=== PATIENT | female | born 1970 | race Caucasian/White ===

== ENCOUNTER 2016-12-28 18:25 | Emergency (ER) | payer BC ==
[~2016-12-28] VITALS: Ht 165.1 cm; Wt 74.5 kg
[~2016-12-28 18:25] MED LIST: ALBUAER19 INH; FLNIN NAE; ONDA4TAB7 SL
[2016-12-28 18:36] VITALS: TEMP 36.8; O2SAT 100; Ht 165.1 cm; Wt 74.5 kg
[2016-12-28] MEDS ORDERED: FLUT0.15 NAE (19:24)
[2016-12-28] MEDS ORDERED: ESCI10TA17 PO (19:24)
[2016-12-28] MEDS ORDERED: VNTHFA/IN INH (19:24)
[2016-12-28 19:28] LABS: BASO % 0.4 %; BASO ABS # 0.04 K/uL (0-0.2); COMPLETE YES; EOS % 0.5 %; HEMATOCRIT 40.3 % (37-47); IG% 0.3 %; LYMPH % 16.7 %; LYMPH ABS # 1.59 K/uL (1.2-3.4); MEAN CELL VOLUME 93.5 fL (80-100); MEAN CORPUSCULAR HEMOGLOBIN 30.9 pg (25-34); MEAN PLATELET VOLUME 10.6 fL (7.4-10.4); NEUT % 74.1 %; PLATELET COUNT 212 K/uL (130-400); RED BLOOD COUNT 4.31 M/uL (4.2-5.4); WHITE BLOOD COUNT 9.54 K/uL (4.8-10.8)
--- NOTE | 2016-12-28 19:34 | DIAGNOSTIC IMAGING REPORT ---
CT SCAN OF THE BRAIN WITHOUT IV CONTRAST CLINICAL HISTORY: Weakness. Dizziness. COMPARISON STUDY: No priors. TECHNIQUE: Unenhanced axial CT scan of the brain is performed from the vertex to the skull base. Automated dose control exposure was utilized. CT DOSE: 601.98 mGy.cm FINDINGS: Brain parenchyma: The brain parenchyma is normal in appearance. There is no hemorrhage, mass effect, or evidence of acute territorial ischemia by CT criteria. Kenney-white matter is preserved. No extra-axial fluid collection is seen. Ventricles, sulci, cisterns: Normal in configuration. Intracranial vasculature: The visualized intracranial vasculature at the skull base is normal in appearance. Calvarium: Unremarkable. Sinuses and mastoids: The visualized paranasal sinuses are clear. The mastoid air cells are well pneumatized. Orbits: The bony orbits are grossly intact. IMPRESSION: No acute intracranial abnormality. Electronically signed by: Isai Gold M.D. 12/28/2016 7:32 PM Dictated Date/Time: 12/28/2016 7:31 PM
[2016-12-28] MEDS ORDERED: ONDANSETRON INJ 2 MG/ML 2 ML VIAL IV STA (19:36)
[2016-12-28] MEDS ORDERED: MECLIZINE HCL 25 MG TAB PO STA (19:36)
[2016-12-28] MEDS ORDERED: KETOROLAC TROMETHAMINE 30 MG/ML VIAL IV STA (19:36)
[2016-12-28] MEDS ORDERED: SODIUM CHLORIDE 0.9% 1000ML 1,000 ML IV STA (19:36)
[2016-12-28 19:38] LABS: PARTIAL THROMBOPLASTIN RATIO 0.9; PROTHROMBIN TIME (PATIENT) 10.7 SECONDS (9.0-12.0)
[2016-12-28 19:46] LABS: ALT/SGPT 19 U/L (12-78); BLOOD UREA NITROGEN 12 mg/dl (7-18); BUN/CREATININE RATIO 12.7 (10-20); CALCIUM 9.2 mg/dl (8.5-10.1); CARBON DIOXIDE 26 mmol/L (21-32); CHLORIDE 106 mmol/L (98-107); CREATININE 0.94 mg/dl (0.60-1.20); GLUCOSE 93 mg/dl (70-99); POTASSIUM 3.8 mmol/L (3.5-5.1); SODIUM 140 mmol/L (136-145)
[2016-12-28 19:56] LABS: ALKALINE PHOSPHATASE 65 U/L (45-117); AST/SGOT 15 U/L (15-37)
--- NOTE | 2016-12-28 19:58 | DIAGNOSTIC IMAGING REPORT ---
SINGLE VIEW CHEST CLINICAL HISTORY: Generalized weakness. FINDINGS: An AP, portable, upright chest radiograph is compared to study dated 11/13/2012. The examination is degraded by portable technique and patient rotation. The cardiomediastinal silhouette is unremarkable. The lungs and pleural spaces are clear. No pneumothorax is seen. The skeletal structures appear osteopenic. The bony thorax is grossly intact. IMPRESSION: No active disease in the chest. Electronically signed by: Isai Gold M.D. 12/28/2016 7:57 PM Dictated Date/Time: 12/28/2016 7:57 PM
[2016-12-28 20:34] LABS: URINE APPEARANCE CLOUDY (CLEAR); URINE BILIRUBIN NEG (NEG); URINE COLOR YELLOW; URINE EPITHELIAL CELL AUTO >30 /lpf (0-5); URINE NITRITE NEG (NEG); URINE PH >= 9.0 (4.5-7.5); URINE SPECIFIC GRAVITY 1.016 (1.000-1.030); UROBILINOGEN NEG (NEG)
[2016-12-28 20:35] LABS: MANUAL MICROSCOPIC REQUIRED? NO; REVIEW REQ? YES
[2016-12-28] MEDS ORDERED: ESTR1TAB2 PO (21:36)
[2016-12-28] MEDS ORDERED: ANT25 PO (21:38)
[2016-12-28 22:00] VITALS: BP 106/63; PULSE 82; O2SAT 100
--- NOTE | 2016-12-28 23:53 | EMERGENCY ROOM VISIT NOTE ---
History Report prepared by Moira: Jj Clemons Under the Supervision of: Dr. Jarocho Fuller D.O. First contact with patient: 18:43 Chief Complaint: SYNCOPE Stated Complaint: SYNCOPE/DIZZY Nursing Triage Summary: Patient arrives via ALS from home with complaints of for the last week feeling exhausted, dizzy, nauseous, and tired. Patient also reports having migraine. Patient went to PCP and they re labs on this past Saturday, but patient has not heard any results yet. Patient was also at the gym working out and had syncopal episode today. History of Present Illness The patient is a 46 year old female who presents to the Emergency Room via ALS with complaints of worsening intermittent dizziness that started around 3 weeks ago. Currently, she says she feels weak and she is not dizzy. The patient says that she had been getting waves of dizziness around once or twice per day. She went to her primary care physician 4 days ago, and had blood tests ordered which she had done 3 days ago. The patient has not gotten the results back. The patient states that she was at the [facility] today for personal training, and around 20 minutes into the session, she started to have a wave of dizziness again, but it was much worse. She also started to get cold and clammy, and she vomited. The patient says that she thinks that she was awake the whole time. EMS was called, but at that point everything was back to normal, so she refused treatment and went home to rest. The patient says that around 1500 this afternoon, she got a horrible migraine with dizziness. She has a history of migraines, which stopped after having her hysterectomy. She rates this headache which feels that her previous migraines. The patient at that time also got cold and clammy, and vomited again. She says that the dizziness has not been associated with exertion, but sometimes twisting and turning her head makes the dizziness worse. She adds that she has had worsening sinus congestion the past few weeks. Per the patient's , the patient had been responsive at moments this afternoon, but after answering would fall back asleep. The patient denies any fevers, cough, chest pain, shortness of breath, abdominal pain, pain or burning with urination, swelling in calves, or weakness or numbness in her arms or legs. She has not had any recent trips. She has no history of heart disease or sudden in her family. The patient takes estradiol. Denies any diabetes, hypertension or hyperlipidemia. No recent surgeries, hemoptysis, history cancer or previous blood clots. Source of History: patient, family Onset: Around 3 weeks ago Position: other (global - dizziness) Timing: intermittent, worsening Modifying Factors (Worsening): other (twisting, turning head at times) Associated Symptoms: + headache, + nausea, + vomiting, No cough, No chest pain, No SOB, No abdominal pain, No urinary symptoms, No weakness (o), No numbness Note: Associated symptoms: Per , unresponsive at times this afternoon. Patient got cold and clammy at times today. Patient denies swelling in calves. Review of Systems See HPI for pertinent positives & negatives. A total of 10 systems reviewed and were otherwise negative. Past Medical & Surgical Medical Problems: (1) Appendectomy (2) Hysterectomy Family History No pertinent family history Social History Smoking Status: Never Smoker Marital Status: Housing Status: lives with family Occupation Status: employed Current/Historical Medications Scheduled Escitalopram (Lexapro), 10 MG PO DAILY Estradiol (Estrace), 1 MG PO DAILY Meclizine HCl (Meclizine HCl), 25 MG PO TID Scheduled PRN Albuterol Hfa (Ventolin Hfa), 2 PUFFS INH Q6H PRN for SOB/Wheezing Fluticasone Propionate (Nasal) (Flonase Allergy Relief), 2 SPRAYS ISIDRO DAILY PRN for Nasal Congestion Allergies Coded Allergies: Penicillins (Verified Allergy, Unknown, 11/28/12) Physical Exam Vital Signs Date Time Temp Pulse Resp B/P (MAP) Pulse Ox O2 Delivery O2 Flow Rate FiO2 12/28/16 22:00 82 17 106/63 100 12/28/16 21:00 66 20 117/67 99 Room Air 12/28/16 20:00 60 125/77 100 Room Air 12/28/16 19:33 63 122/74 100 Room Air 72 110/87 88 103/76 12/28/16 18:43 58 12/28/16 18:36 100 Room Air 12/28/16 18:36 36.8 66 16 124/73 100 Room Air Physical Exam GENERAL: sitting up in bed, alert, well appearing, well nourished, no distress, non-toxic EYE EXAM: normal conjunctiva, PERRL and EOM's intact OROPHARYNX: no exudate, no erythema, lips, buccal mucosa, and tongue normal and mucous membranes are moist EARS: TM's clear bilaterally. HEAD: Normocephalic/atraumatic NECK: supple, no nuchal rigidity, no adenopathy, non-tender, negative Brudzinski LUNGS: Clear to auscultation. Normal chest wall mechanics HEART: no murmurs, S1 normal and S2 normal ABDOMEN: abdomen soft, non-tender, normo-active bowel sounds, no masses, no rebound or guarding. BACK: Back is symmetrical on inspection and there is no deformity, no midline tenderness, no CVA tenderness. SKIN: no rashes and no bruising UPPER EXTREMITIES: upper extremities are grossly normal. LOWER EXTREMITIES: No pitting edema. NEURO EXAM: Normal sensorium, cranial nerves II-XII intact, normal speech, no weakness of arms, no weakness of legs. No drift. Finger to nose intact. Gross sensation intact. Rapid alternating movements of upper extremities intact. Medical Decision & Procedures ER Provider Diagnostic Interpretation: Radiology results as stated below per my review and the radiologist's interpretation: CT SCAN OF THE BRAIN WITHOUT IV CONTRAST CLINICAL HISTORY: Weakness. Dizziness. COMPARISON STUDY: No priors. TECHNIQUE: Unenhanced axial CT scan of the brain is performed from the vertex to the skull base. Automated dose control exposure was utilized. CT DOSE: 601.98 mGy.cm FINDINGS: Brain parenchyma: The brain parenchyma is normal in appearance. There is no hemorrhage, mass effect, or evidence of acute territorial ischemia by CT criteria. Kenney-white matter is preserved. No extra-axial fluid collection is seen. Ventricles, sulci, cisterns: Normal in configuration. Intracranial vasculature: The visualized intracranial vasculature at the skull base is normal in appearance. Calvarium: Unremarkable. Sinuses and mastoids: The visualized paranasal sinuses are clear. The mastoid air cells are well pneumatized. Orbits: The bony orbits are grossly intact. IMPRESSION: No acute intracranial abnormality. Electronically signed by: Isai Gold M.D. 12/28/2016 7:32 PM Dictated Date/Time: 12/28/2016 7:31 PM SINGLE VIEW CHEST CLINICAL HISTORY: Generalized weakness. FINDINGS: An AP, portable, upright chest radiograph is compared to study dated 11/13/2012. The examination is degraded by portable technique and patient rotation. The cardiomediastinal silhouette is unremarkable. The lungs and pleural spaces are clear. No pneumothorax is seen. The skeletal structures appear osteopenic. The bony thorax is grossly intact. IMPRESSION: No active disease in the chest. Electronically signed by: Isai Gold M.D. 12/28/2016 7:57 PM Dictated Date/Time: 12/28/2016 7:57 PM Laboratory Results 12/28/16 19:10 Red Blood Count 4.31, Mean Corpuscular Volume 93.5, Mean Corpuscular Hemoglobin 30.9, Mean Corpuscular Hemoglobin Concent 33.0, Mean Platelet Volume 10.6, Neutrophils (%) (Auto) 74.1, Lymphocytes (%) (Auto) 16.7, Monocytes (%) (Auto) 8.0, Eosinophils (%) (Auto) 0.5, Basophils (%) (Auto) 0.4, Neutrophils # (Auto) 7.07, Lymphocytes # (Auto) 1.59, Monocytes # (Auto) 0.76, Eosinophils # (Auto) 0.05, Basophils # (Auto) 0.04 12/28/16 19:10 Test 12/28/16 19:10 12/28/16 19:13 12/28/16 20:10 White Blood Count 9.54 K/uL (4.8-10.8) Red Blood Count 4.31 M/uL (4.2-5.4) Hemoglobin 13.3 g/dL (12.0-16.0) Hematocrit 40.3 % (37-47) Mean Corpuscular Volume 93.5 fL (80-100) Mean Corpuscular Hemoglobin 30.9 pg (25-34) Mean Corpuscular Hemoglobin Concent 33.0 g/dl (32-36) Platelet Count 212 K/uL (130-400) Mean Platelet Volume 10.6 fL (7.4-10.4) Neutrophils (%) (Auto) 74.1 % Lymphocytes (%) (Auto) 16.7 % Monocytes (%) (Auto) 8.0 % Eosinophils (%) (Auto) 0.5 % Basophils (%) (Auto) 0.4 % Neutrophils # (Auto) 7.07 K/uL (1.4-6.5) Lymphocytes # (Auto) 1.59 K/uL (1.2-3.4) Monocytes # (Auto) 0.76 K/uL (0.11-0.59) Eosinophils # (Auto) 0.05 K/uL (0-0.5) Basophils # (Auto) 0.04 K/uL (0-0.2) RDW Standard Deviation 43.4 fL (36.4-46.3) RDW Coefficient of Variation 12.6 % (11.5-14.5) Immature Granulocyte % (Auto) 0.3 % Immature Granulocyte # (Auto) 0.03 K/uL (0.00-0.02) Prothrombin Time 10.7 SECONDS (9.0-12.0) Prothromb Time International Ratio 1.0 (0.9-1.1) Activated Partial Thromboplast Time 22.5 SECONDS (21.0-31.0) Partial Thromboplastin Ratio 0.9 Anion Gap 8.0 mmol/L (3-11) Est Creatinine Clear Calc Drug Dose 73.9 ml/min Estimated GFR () 83.1 Estimated GFR (Non- 71.7 BUN/Creatinine Ratio 12.7 (10-20) Calcium Level 9.2 mg/dl (8.5-10.1) Total Bilirubin 0.2 mg/dl (0.2-1) Direct Bilirubin < 0.1 mg/dl (0-0.2) Aspartate Amino Transf (AST/SGOT) 15 U/L (15-37) Alanine Aminotransferase (ALT/SGPT) 19 U/L (12-78) Alkaline Phosphatase 65 U/L (45-117) Troponin I < 0.015 ng/ml (0-0.045) Total Protein 7.0 gm/dl (6.4-8.2) Albumin 3.6 gm/dl (3.4-5.0) Thyroid Stimulating Hormone (TSH) 3.530 uIu/ml (0.300-4.500) Bedside Glucose 94 mg/dl (70-90) Urine Color YELLOW Urine Appearance CLOUDY (CLEAR) Urine pH >= 9.0 (4.5-7.5) Urine Specific [place] 1.016 (1.000-1.030) Urine Protein NEG (NEG) Urine Glucose (UA) NEG (NEG) Urine Ketones TRACE (NEG) Urine Occult Blood NEG (NEG) Urine Nitrite NEG (NEG) Urine Bilirubin NEG (NEG) Urine Urobilinogen NEG (NEG) Urine Leukocyte Esterase NEG (NEG) Urine WBC (Auto) 1-5 /hpf (0-5) Urine RBC (Auto) 0-4 /hpf (0-4) Urine Hyaline Casts (Auto) 1-5 /lpf (0-5) Urine Epithelial Cells (Auto) >30 /lpf (0-5) Urine Bacteria (Auto) NEG (NEG) Urine Renal Epithelial Cells 0-5 /lpf (0-5) Laboratory results per my review. Medications Administered Medications (Trade) Dose Ordered Sig/Zackery Route Start Time Stop Time Status Last Admin Dose Admin Sodium Chloride 1,000 ml @ 999 mls/hr Q1H1M STAT IV 12/28/16 19:36 12/28/16 20:36 DC 12/28/16 19:51 999 MLS/HR Ondansetron HCl (Zofran Inj) 4 mg NOW STAT IV 12/28/16 19:36 12/28/16 19:38 DC 12/28/16 19:50 4 MG Meclizine HCl (Antivert Tab) 25 mg NOW STAT PO 12/28/16 19:36 12/28/16 19:38 DC 12/28/16 19:50 25 MG Ketorolac Tromethamine (Toradol Inj) 30 mg NOW STAT IV 12/28/16 19:36 12/28/16 19:38 DC 12/28/16 19:51 30 MG ECG Indication: other (dizziness) Rate (beats per minute): 60 Rhythm: sinus rhythm Findings: prolonged QT, no ectopy, other (normal axis) ED Course ED COURSE: Vital signs were reviewed and showed bradycardic vitals. The patients medical record was reviewed The above diagnostic studies were performed and reviewed. ED treatments and interventions as stated above. 1853: The patient was evaluated in room C3. A complete history and physical examination was performed. 1935: Ordered Toradol Inj 30 mg IV, Antivert Tab 25 mg PO, Zofran Inj 4 mg IV, NSS 1000 ml @ 999 mls/hr IV. 2114: Upon reevaluation, the patient is resting. I offered observation but the patient and her prefer to go home. I discussed my findings with the patient and she understands and agrees with the treatment plan. Based on the patients age, coexisting illnesses, exam and lab findings the decision to treat as an outpatient was made. The patient remained stable while under my care. The patient appeared well at the time of discharge. Medical Decision Differential diagnosis includes etiologies such as benign positional vertigo, dehydration, hypovolemia, anemia, tumor, infection, hypoglycemia, electrolyte abnormalities, cardiac sources, intracerebral event, toxicologic, neurologic, as well as others were entertained. Blood pressure screening: Patient was found to have normal blood pressure on screening and does not require follow-up. Medication Reconciliation: I attest that I have personally reviewed the patient' s current medication list. Patient is a 38-year-old female who presents the ER for intermittent dizziness which has been occurring twice a day over the past 3 weeks. No significant exacerbating or remitting factors with the exception of rapid movements of her head. Patient is completely neurologically intact today. There is a question of sick be prior to arrival. She has no cardiac risk factors. Troponins negative. EKG is unremarkable for ischemia. Chest x-ray is unremarkable. CT head was negative. Her headache started [address] head was performed at 6 PM with his negative CT head and do not believe that she is having, bleed. Labs are completely unremarkable. UA is negative. Patient was updated reverse her findings and fell sniffling better following includes, Zofran and Antivert. She was offered observation but declined and preferred to go home. I did feel this is reasonable. She was discharged with a prescription of Antivert as I feel this is likely peripheral vertigo. Discussed with Pt concerning signs and symptoms to watch out for. Pt was instructed to follow up with their PCP and discussed with the patient their option to return to the ED at anytime for persistent or worsening symptoms. The appropriate anticipatory guidance and out- patient management, including indications for return to the emergency department , were explained at length to the patient and understood. Impression Primary Impression: Syncope Additional Impression: Dizziness Scribe Attestation The scribe's documentation has been prepared under my direction and personally reviewed by me in its entirety. I confirm that the note above accurately reflects all work, treatment, procedures, and medical decision making performed by me. Departure Information Dispostion Home / Self-Care Prescriptions Meclizine HCl (Meclizine HCl) 25 Mg Tab 25 MG PO TID, #30 Prov: Jarocho Fuller, DO 12/28/16 Referrals No Doctor, Assigned (PCP) Bren Schuster D.O. Patient Instructions ED Dizziness [facility], [facility], Syncope Dx Additional Instructions Please follow up with your primary care doctor with in the next 24 hours. Any worsening of your symptoms, please return to the ED immediately. This includes fevers greater than 100.4, headache, change in vision, weakness or numbness in arms or legs, passing out, shortness of breath, or any other concerning signs or symptoms from your standpoint. Please remain as hydrated as possible and take Antivert as needed for dizziness. Problem Qualifiers Primary Impression: Syncope Syncope type: unspecified Qualified Codes: R55 - Syncope and collapse
== END 2016-12-28 22:00 | disposition home or self-care (01) ==
LOC: EDUNIT# 18:25 → C.EDC 18:31 → EDBD 18:31 → C.EDC 22:00
DX: R55 Syncope and collapse (principal)

== ENCOUNTER → 2017-02-08 | Outpatient (CLI) | payer BC ==
[~2017-02-08] MED LIST changes: -ALBUAER19 INH; +ANT25 PO; +ESCI10TA17 PO; +ESTR1TAB2 PO; -FLNIN NAE; +FLUT0.15 NAE; -ONDA4TAB7 SL; +VNTHFA/IN INH
--- NOTE | 2017-02-08 13:58 | MAMMOGRAPHY REPORT ---
BILATERAL DIGITAL SCREENING MAMMOGRAM TOMOSYNTHESIS WITH CAD: 02/08/2017 CLINICAL HISTORY: Routine screening. Patient has no complaints. TECHNIQUE: Breast tomosynthesis in addition to standard 2D mammography was performed. Current study was also evaluated with a Computer Aided Detection (CAD) system. COMPARISON: Comparison is made to exams dated: 02/10/2016 mammogram, 02/07/2016 mammogram, 01/28/2015 ma mmogram, 01/25/2014 mammogram, 01/15/2013 mammogram, and 01/10/2012 mammogram - [facility] nter. BREAST COMPOSITION: There are scattered areas of fibroglandular density in both breasts. FINDINGS: No suspicious masses, calcifications, or areas of architectural distortion are noted in ei ther breast. There has been no significant interval change compared to prior exams. IMPRESSION: ACR BI-RADS CATEGORY 1: NEGATIVE There is no mammographic evidence of malignancy. A 1 year screening mammogram is recommended. The pa tient will receive written notification of the results. Approximately 10% of breast cancers are not detected with mammography. A negative mammographic report should not delay biopsy if a clinically suggestive mass is present. Lisa Veloz M.D. ah/:02/08/2017 07:50:14 Pressure Dispatcher: Mala ARTEAGA(Alexander)(Feliz)(BD), [facility] letter sent: Normal 1/2 BI-RADS Code: ACR BI-RADS Category 1: Negative
== END | disposition home or self-care (01) ==
LOC: EDBD → C.MAMM 07:29
PROVIDERS: ATTEND Family Medicine
DX: Z12.31 Encounter for screening mammogram for malignant neoplasm of breast (principal)

== ENCOUNTER → 2017-05-13 | Outpatient (CLI) | payer BC ==
--- NOTE | 2017-05-13 13:19 | DIAGNOSTIC IMAGING REPORT ---
KUB CLINICAL HISTORY: 47 years-old Female presenting with N20.0 Nephrolithiasis. TECHNIQUE: Single supine view of the abdomen was obtained. COMPARISON: 03/25/2015. FINDINGS: Normal bowel gas pattern. No evidence of free intraperitoneal gas, pneumatosis, or portal venous gas. Calcification again noted projecting over the upper pole of the right kidney consistent with calculus. No calcification along the courses of the ureters or additional renal calcification evident. Osseous structures normal. IMPRESSION: 1. Stable appearance of the small right upper pole renal calculus. Electronically signed by: Donny Smyth M.D. 05/13/2017 1:18 PM Dictated Date/Time: 05/13/2017 1:16 PM
== END | disposition home or self-care (01) ==
LOC: C.RAD 12:55
PROVIDERS: ATTEND Urology
DX: N20.0 Calculus of kidney (principal)

== ENCOUNTER → 2018-02-11 | Outpatient (CLI) | payer OTHER ==
--- NOTE | 2018-02-11 14:57 | MAMMOGRAPHY REPORT ---
BILATERAL DIGITAL SCREENING MAMMOGRAM TOMOSYNTHESIS WITH CAD: 02/11/2018 CLINICAL HISTORY: Routine screening. Patient has no complaints. TECHNIQUE: The study was acquired using full field digital technology and interpreted from soft copy. Breast tomosynthesis in addition to standard 2D mammography was performed. Current study was also ev aluated with a Computer Aided Detection (CAD) system. COMPARISON: Comparison is made to exams dated: 02/08/2017 mammogram, 02/10/2016 mammogram, 02/07/2016 ma mmogram, 01/28/2015 mammogram, 01/25/2014 mammogram, and 01/15/2013 mammogram - [facility] nter. BREAST COMPOSITION: There are scattered areas of fibroglandular density in both breasts. FINDINGS: There are stable benign circumscribed masses in the upper outer left breast and 9:00 right breast. A few benign coarse calcifications in the left breast. Stable asymmetry in the lateral post erior right breast on the CC view. No new suspicious mass, architectural distortion or cluster of alysa rocalcifications is seen. IMPRESSION: ACR BI-RADS CATEGORY 1: NEGATIVE There is no mammographic evidence of malignancy. A 1 year screening mammogram is recommended.( 019) The patient will receive written notification of the results. Some breast cancers are not detected with mammography. A negative mammographic report should not albert y biopsy if a clinically suggestive mass is present. Princess Angulo M.D. ay/:02/11/2018 09:07:43 Restaurant Kitchen And Service Manager: RT Peter(Alexander)(M), [facility] letter sent: Normal 1/2 BI-RADS Code: ACR BI-RADS Category 1: Negative
== END | disposition home or self-care (01) ==
LOC: C.MAMM 08:42
PROVIDERS: ATTEND Obstetrics & Gynecology
DX: Z12.31 Encounter for screening mammogram for malignant neoplasm of breast (principal)